=== PATIENT | female | born 1945 | race Caucasian/White ===

== ENCOUNTER 2021-09-16 15:32 | Inpatient (IN) | payer MEDICARE, OTHER ==
[~2021-09-16] VITALS: Ht 157.5 cm; Wt 49.9 kg
[2021-09-16 16:00] VITALS: BP 108/72
[2021-09-16] MEDS ORDERED: PHENAZOPYRIDINE HCL 100 MG TABLET PO PRN (17:30)
[2021-09-16] MEDS ORDERED: MAGNESIUM HYDROXIDE SUSPENSION 30 ML UDCUP PO PRN (17:30)
[2021-09-16] MEDS ORDERED: MECLIZINE HCL 12.5 MG TABLET PO PRN (17:30)
[2021-09-16] MEDS: CARBIDOPA/LEVODOPA 25-100 MG ER TABLET PO SCH (20:55)
[2021-09-16] MEDS: SENNA 187 MG TABLET PO SCH (20:56)
[2021-09-16] MEDS: METOPROLOL TARTRATE 25 MG TABLET PO SCH (20:56)
[2021-09-16 20:59] VITALS: BP 126/75
[2021-09-16] MEDS: ETHYL ALCOHOL 62% ANTISEPTIC NASAL SANITIZER 0.6 ML AMPUL NASAL SCH (20:59)
[2021-09-16] MEDS: HYDROCODONE/ACETAMINOPHEN 5-325 MG TABLET PO PRN (20:59)
[2021-09-16] MEDS ORDERED: DOCUSATE SODIUM 100 MG CAPSULE PO SCH (21:00)
[2021-09-16] MEDS: DOCUSATE SODIUM 250 MG CAPSULE PO SCH (21:09)
[2021-09-17 04:40] VITALS: BP 110/72
[2021-09-17] MEDS: HYDROCODONE/ACETAMINOPHEN 5-325 MG TABLET PO PRN (04:40)
[2021-09-17 07:12] LABS: BASOPHILS % (AUTO) 0.6 % (0.0-2.0); HEMATOCRIT 39.8 % (36-46); HEMOGLOBIN 13.7 g/dL (12.0-16.0); LYMPHOCYTES # (AUTO) 1.3 K/uL (1.0-4.8); LYMPHOCYTES % (AUTO) 11.8 % (22.0-44.0); MEAN CORPUSCULAR HEMOGLOBIN 34.2 pg (26.0-34.0); MEAN CORPUSCULAR HGB CONC 34.5 G/dL (31.0-37.0); MEAN CORPUSCULAR VOLUME 99 fL (80-100); MONOCYTES # (AUTO) 0.7 K/uL (0.1-1.0); NEUTROPHILS # (AUTO) 8.5 K/uL (1.8-7.7); NEUTROPHILS % (AUTO) 78.6 % (40.0-70.0); PLATELET COUNT (AUTO) 306 K/uL (150-450); RED BLOOD CELL COUNT(AUTO) 4.01 MIL/uL (4.00-5.20)
[2021-09-17 07:28] LABS: ALANINE AMINOTRANSFERASE 9 U/L (12-78); ALBUMIN 2.9 g/dL (3.4-5.0); ALKALINE PHOSPHATASE 91 U/L (46-116); ANION GAP 7 mmol/L (8-16); ASPARTATE AMINOTRANSFERASE 26 U/L (15-37); BILIRUBIN,TOTAL 0.6 mg/dL (0.1-1.0); CALCIUM, TOTAL 9.3 mg/dL (8.8-10.5); CARBON DIOXIDE 29 mmol/L (22-29); CHLORIDE 98 mmol/L (98-107); CREATININE 0.54 mg/dL (0.60-1.30); GLUCOSE,RANDOM 107 mg/dL (70-110); POTASSIUM 4.4 mmol/L (3.5-5.1); SODIUM SERUM 134 mmol/L (136-145); UREA NITROGEN, BLOOD 17 mg/dL (7-18)
[2021-09-17 07:30] VITALS: BP 111/66
[2021-09-17 07:33] LABS: GLOMERULAR FILTR. RATE CALC > 60 mL/min (>60)
[2021-09-17] MEDS: ETHYL ALCOHOL 62% ANTISEPTIC NASAL SANITIZER 0.6 ML AMPUL NASAL SCH ×2 (08:12→20:04)
[2021-09-17] MEDS: MULTIVITAMINS WITH MINERALS, THERAPEUTIC TABLET PO SCH (08:14)
[2021-09-17] MEDS: CARBIDOPA/LEVODOPA 25-100 MG ER TABLET PO SCH ×4 (08:15→20:05)
[2021-09-17] MEDS: DOCUSATE SODIUM 250 MG CAPSULE PO SCH ×2 (08:15→20:05)
[2021-09-17] MEDS: METOPROLOL TARTRATE 25 MG TABLET PO SCH ×2 (08:15→20:07)
[2021-09-17] MEDS: RASAGILINE MESYLATE 1 MG TABLET PO SCH (08:16)
[2021-09-17] MEDS: ACETAMINOPHEN 325 MG TABLET PO PRN (12:59)
[2021-09-17 15:20] VITALS: BP 98/54
[2021-09-17 19:55] VITALS: BP 99/48
[2021-09-17] MEDS: SENNA 187 MG TABLET PO SCH (20:05)
[2021-09-18 04:00] VITALS: BP 108/52
[2021-09-18] MEDS: ETHYL ALCOHOL 62% ANTISEPTIC NASAL SANITIZER 0.6 ML AMPUL NASAL SCH ×2 (08:01→20:16)
[2021-09-18] MEDS: MULTIVITAMINS WITH MINERALS, THERAPEUTIC TABLET PO SCH (08:03)
[2021-09-18] MEDS: DOCUSATE SODIUM 250 MG CAPSULE PO SCH ×2 (08:03→20:13)
[2021-09-18] MEDS: METOPROLOL TARTRATE 25 MG TABLET PO SCH ×2 (08:03→20:13)
[2021-09-18] MEDS: RASAGILINE MESYLATE 1 MG TABLET PO SCH (08:04)
[2021-09-18] MEDS: CARBIDOPA/LEVODOPA 25-100 MG ER TABLET PO SCH ×4 (08:04→20:13)
[2021-09-18 08:06] VITALS: BP 116/58
[2021-09-18] MEDS: HYDROCODONE/ACETAMINOPHEN 5-325 MG TABLET PO PRN (08:06)
[2021-09-18] MEDS: ENOXAPARIN SODIUM 30 MG/0.3 ML PF SYRINGE SQ SCH (08:06)
[2021-09-18 15:43] VITALS: BP 109/51
[2021-09-18] MEDS: SENNA 187 MG TABLET PO SCH (20:13)
[2021-09-18 20:17] VITALS: BP 112/47
[2021-09-18 23:00] VITALS: BP 108/54
[2021-09-19 06:37] LABS: GLUCOMETER DEV NAME(LOC) 2WR.2B; GLUCOSE,POINT OF CARE 109 MG/DL (70-110)
[2021-09-19 06:59] LABS: BASOPHILS % (AUTO) 1.2 % (0.0-2.0); EOSINOPHILS % (AUTO) 2.2 % (1.0-6.0); HEMATOCRIT 38.8 % (36-46); LYMPHOCYTES # (AUTO) 2.4 K/uL (1.0-4.8); LYMPHOCYTES % (AUTO) 26.2 % (22.0-44.0); MEAN CORPUSCULAR HEMOGLOBIN 33.3 pg (26.0-34.0); MEAN CORPUSCULAR HGB CONC 33.5 G/dL (31.0-37.0); MEAN CORPUSCULAR VOLUME 100 fL (80-100); MONOCYTES # (AUTO) 0.7 K/uL (0.1-1.0); MONOCYTES % (AUTO) 7.3 % (2.0-9.0); NEUTROPHILS # (AUTO) 5.9 K/uL (1.8-7.7); NEUTROPHILS % (AUTO) 63.1 % (40.0-70.0); PLATELET COUNT (AUTO) 357 K/uL (150-450); RED CELL DISTRIBUTION WIDTH 12.9 % (11.5-14.5)
[2021-09-19 07:20] LABS: PROTHROMBIN TIME 10.6 SEC (9.4-11.6)
[2021-09-19 07:27] LABS: APPEARANCE,URINE HAZY (CLEAR); BILIRUBIN,URINE NEGATIVE (NEGATIVE); GLUCOSE, URINE (UA) NEGATIVE (NEGATIVE); KETONES,URINE NEGATIVE (NEGATIVE); LEUKOCYTE ESTERASE ,URINE LARGE (NEGATIVE); NITRATE,URINE NEGATIVE (NEGATIVE); OCCULT BLOOD,URINE TRACE (NEGATIVE); PH,URINE 5.5 (5.0-8.0); PROTEIN,URINE NEGATIVE (NEGATIVE); SPECIFIC GRAVITIY, URINE 1.015 (1.003-1.030); UROBILINOGEN,URINE <=1.0 mg/dL (<=1.0)
[2021-09-19 07:42] LABS: RBC,URINE 0-2 /HPF (0-2); WBC,URINE 26-50 /HPF (0-5)
[2021-09-19 07:43] LABS: BACTERIA,URINE Moderate /HPF (None Seen)
[2021-09-19 08:15] LABS: ANION GAP 5 mmol/L (8-16); CALCIUM, TOTAL 9.5 mg/dL (8.8-10.5); CARBON DIOXIDE 29 mmol/L (22-29); CHLORIDE 100 mmol/L (98-107); CREATININE 0.57 mg/dL (0.60-1.30); GLUCOSE,RANDOM 110 mg/dL (70-110); POTASSIUM 4.3 mmol/L (3.5-5.1); SODIUM SERUM 134 mmol/L (136-145); UREA NITROGEN, BLOOD 19 mg/dL (7-18)
[2021-09-19 08:17] LABS: GLOMERULAR FILTR. RATE CALC > 60 mL/min (>60)
[2021-09-19 08:21] LABS: ALANINE AMINOTRANSFERASE 15 U/L (12-78); ALBUMIN 3.2 g/dL (3.4-5.0); ALKALINE PHOSPHATASE 133 U/L (46-116); ASPARTATE AMINOTRANSFERASE 29 U/L (15-37); BILIRUBIN,TOTAL 0.4 mg/dL (0.1-1.0); TOTAL PROTEIN, SERUM 7.5 g/dL (6.4-8.2)
[2021-09-19] MEDS: RASAGILINE MESYLATE 1 MG TABLET PO SCH (08:26)
[2021-09-19] MEDS: ETHYL ALCOHOL 62% ANTISEPTIC NASAL SANITIZER 0.6 ML AMPUL NASAL SCH ×2 (08:26→20:50)
[2021-09-19] MEDS: CARBIDOPA/LEVODOPA 25-100 MG ER TABLET PO SCH ×4 (08:26→20:49)
[2021-09-19] MEDS: DOCUSATE SODIUM 250 MG CAPSULE PO SCH ×2 (08:27→20:49)
[2021-09-19] MEDS: MULTIVITAMINS WITH MINERALS, THERAPEUTIC TABLET PO SCH (08:27)
[2021-09-19] MEDS: METOPROLOL TARTRATE 25 MG TABLET PO SCH ×2 (08:27→20:49)
[2021-09-19] MEDS: ENOXAPARIN SODIUM 30 MG/0.3 ML PF SYRINGE SQ SCH (08:27)
[2021-09-19] MEDS: NITROFURANTOIN MONOHYD/M-CRYST 100 MG CAPSULE [MACROBID] PO SCH ×2 (09:42→20:51)
[2021-09-19] MEDS: HYDROCODONE/ACETAMINOPHEN 5-325 MG TABLET PO PRN (09:43)
[2021-09-19 09:50] VITALS: BP 114/62
[2021-09-19 09:58] VITALS: BP 111/72
[2021-09-19 10:01] VITALS: BP 94/51
[2021-09-19 16:02] VITALS: BP 105/46
[2021-09-19 20:31] VITALS: BP 113/51
[2021-09-19] MEDS: SENNA 187 MG TABLET PO SCH (20:49)
[2021-09-20 01:00] VITALS: BP 118/55
[2021-09-20] MEDS: ETHYL ALCOHOL 62% ANTISEPTIC NASAL SANITIZER 0.6 ML AMPUL NASAL SCH ×2 (09:06→20:50)
[2021-09-20] MEDS: CARBIDOPA/LEVODOPA 25-100 MG ER TABLET PO SCH ×4 (09:07→20:50)
[2021-09-20] MEDS: ENOXAPARIN SODIUM 30 MG/0.3 ML PF SYRINGE SQ SCH (09:07)
[2021-09-20] MEDS: NITROFURANTOIN MONOHYD/M-CRYST 100 MG CAPSULE [MACROBID] PO SCH ×2 (09:08→20:50)
[2021-09-20] MEDS: METOPROLOL TARTRATE 25 MG TABLET PO SCH ×2 (09:08→20:50)
[2021-09-20] MEDS: RASAGILINE MESYLATE 1 MG TABLET PO SCH (09:08)
[2021-09-20] MEDS: DOCUSATE SODIUM 250 MG CAPSULE PO SCH ×2 (09:09→20:55)
[2021-09-20] MEDS: HYDROCODONE/ACETAMINOPHEN 5-325 MG TABLET PO PRN (09:09)
[2021-09-20] MEDS: MULTIVITAMINS WITH MINERALS, THERAPEUTIC TABLET PO SCH (09:10)
[2021-09-20 09:15] VITALS: BP 147/77
[2021-09-20 15:20] VITALS: BP 107/57
[2021-09-20] MEDS: SENNA 187 MG TABLET PO SCH (20:55)
[2021-09-21] VITALS: BP 109/50
[2021-09-21 01:03] VITALS: BP 128/66
[2021-09-21 07:35] VITALS: BP 131/76
[2021-09-21] MEDS: ETHYL ALCOHOL 62% ANTISEPTIC NASAL SANITIZER 0.6 ML AMPUL NASAL SCH ×2 (08:09→21:53)
[2021-09-21] MEDS: RASAGILINE MESYLATE 1 MG TABLET PO SCH (08:09)
[2021-09-21] MEDS: MULTIVITAMINS WITH MINERALS, THERAPEUTIC TABLET PO SCH (08:10)
[2021-09-21] MEDS: DOCUSATE SODIUM 250 MG CAPSULE PO SCH ×2 (08:10→21:53)
[2021-09-21] MEDS: ENOXAPARIN SODIUM 30 MG/0.3 ML PF SYRINGE SQ SCH (08:11)
[2021-09-21] MEDS: NITROFURANTOIN MONOHYD/M-CRYST 100 MG CAPSULE [MACROBID] PO SCH ×2 (08:11→21:53)
[2021-09-21] MEDS: METOPROLOL TARTRATE 25 MG TABLET PO SCH ×2 (08:11→21:55)
[2021-09-21] MEDS: CARBIDOPA/LEVODOPA 25-100 MG ER TABLET PO SCH ×4 (08:13→21:54)
[2021-09-21] MEDS: HYDROCODONE/ACETAMINOPHEN 5-325 MG TABLET PO PRN ×2 (08:16→15:19)
[2021-09-21 15:19] VITALS: BP 124/64
[2021-09-21 21:00] VITALS: BP 120/62
[2021-09-21] MEDS: SENNA 187 MG TABLET PO SCH (21:54)
[2021-09-22] VITALS: BP 130/60
[2021-09-22 06:44] LABS: ANION GAP 7 mmol/L (8-16); CALCIUM, TOTAL 8.7 mg/dL (8.8-10.5); CARBON DIOXIDE 29 mmol/L (22-29); CHLORIDE 103 mmol/L (98-107); CREATININE 0.49 mg/dL (0.60-1.30); GLUCOSE,RANDOM 107 mg/dL (70-110); POTASSIUM 3.8 mmol/L (3.5-5.1); SODIUM SERUM 139 mmol/L (136-145); UREA NITROGEN, BLOOD 10 mg/dL (7-18)
[2021-09-22 06:45] LABS: GLOMERULAR FILTR. RATE CALC > 60 mL/min (>60)
[2021-09-22 07:35] VITALS: BP 124/57
[2021-09-22] MEDS: RASAGILINE MESYLATE 1 MG TABLET PO SCH (08:44)
[2021-09-22] MEDS: METOPROLOL TARTRATE 25 MG TABLET PO SCH ×2 (08:44→21:40)
[2021-09-22] MEDS: NITROFURANTOIN MONOHYD/M-CRYST 100 MG CAPSULE [MACROBID] PO SCH (08:44)
[2021-09-22] MEDS: CARBIDOPA/LEVODOPA 25-100 MG ER TABLET PO SCH ×4 (08:44→21:40)
[2021-09-22] MEDS: MULTIVITAMINS WITH MINERALS, THERAPEUTIC TABLET PO SCH (08:44)
[2021-09-22] MEDS: ENOXAPARIN SODIUM 30 MG/0.3 ML PF SYRINGE SQ SCH (08:44)
[2021-09-22] MEDS: DOCUSATE SODIUM 250 MG CAPSULE PO SCH ×2 (08:45→21:40)
[2021-09-22] MEDS: ETHYL ALCOHOL 62% ANTISEPTIC NASAL SANITIZER 0.6 ML AMPUL NASAL SCH ×2 (08:49→21:40)
[2021-09-22] MEDS: BusPIRone HCL 5 MG TABLET PO SCH ×2 (14:10→21:40)
[2021-09-22 15:00] VITALS: BP 95/49
[2021-09-22] MEDS: SENNA 187 MG TABLET PO SCH (21:40)
[2021-09-23 01:30] VITALS: BP 112/45
[2021-09-23 07:00] VITALS: BP 112/70
[2021-09-23] MEDS: METOPROLOL TARTRATE 25 MG TABLET PO SCH ×2 (09:43→20:37)
[2021-09-23] MEDS: ETHYL ALCOHOL 62% ANTISEPTIC NASAL SANITIZER 0.6 ML AMPUL NASAL SCH ×2 (09:43→20:37)
[2021-09-23] MEDS: MULTIVITAMINS WITH MINERALS, THERAPEUTIC TABLET PO SCH (09:43)
[2021-09-23] MEDS: DOCUSATE SODIUM 250 MG CAPSULE PO SCH ×2 (09:43→20:35)
[2021-09-23] MEDS: RASAGILINE MESYLATE 1 MG TABLET PO SCH (09:43)
[2021-09-23] MEDS: BusPIRone HCL 5 MG TABLET PO SCH ×2 (09:43→20:36)
[2021-09-23] MEDS: ENOXAPARIN SODIUM 30 MG/0.3 ML PF SYRINGE SQ SCH (09:44)
[2021-09-23] MEDS: CARBIDOPA/LEVODOPA 25-100 MG ER TABLET PO SCH ×4 (09:44→20:35)
[2021-09-23 16:58] VITALS: BP 102/70
[2021-09-23] MEDS: SENNA 187 MG TABLET PO SCH (20:37)
[2021-09-23 20:40] VITALS: BP 109/62
[2021-09-24 02:00] VITALS: BP 114/51
[2021-09-24] MEDS: ETHYL ALCOHOL 62% ANTISEPTIC NASAL SANITIZER 0.6 ML AMPUL NASAL SCH ×2 (08:16→20:31)
[2021-09-24] MEDS: ENOXAPARIN SODIUM 30 MG/0.3 ML PF SYRINGE SQ SCH (08:17)
[2021-09-24] MEDS: METOPROLOL TARTRATE 25 MG TABLET PO SCH ×2 (08:17→20:32)
[2021-09-24] MEDS: CARBIDOPA/LEVODOPA 25-100 MG ER TABLET PO SCH ×4 (08:17→20:31)
[2021-09-24] MEDS: MULTIVITAMINS WITH MINERALS, THERAPEUTIC TABLET PO SCH (08:17)
[2021-09-24] MEDS: RASAGILINE MESYLATE 1 MG TABLET PO SCH (08:18)
[2021-09-24] MEDS: DOCUSATE SODIUM 250 MG CAPSULE PO SCH ×2 (08:18→20:31)
[2021-09-24] MEDS: BusPIRone HCL 5 MG TABLET PO SCH ×2 (08:18→20:32)
[2021-09-24] MEDS: ACETAMINOPHEN 325 MG TABLET PO PRN (09:17)
[2021-09-24 09:25] VITALS: BP 119/59
[2021-09-24 16:10] VITALS: BP 97/48
[2021-09-24 20:27] VITALS: BP 123/49
[2021-09-24] MEDS: SENNA 187 MG TABLET PO SCH (20:33)
[2021-09-24 23:57] VITALS: BP 116/53
[2021-09-25 07:30] VITALS: BP 130/74
[2021-09-25] MEDS: ENOXAPARIN SODIUM 30 MG/0.3 ML PF SYRINGE SQ SCH (08:02)
[2021-09-25] MEDS: ETHYL ALCOHOL 62% ANTISEPTIC NASAL SANITIZER 0.6 ML AMPUL NASAL SCH ×2 (08:02→21:34)
[2021-09-25] MEDS: DOCUSATE SODIUM 250 MG CAPSULE PO SCH ×2 (08:03→21:00)
[2021-09-25] MEDS: MULTIVITAMINS WITH MINERALS, THERAPEUTIC TABLET PO SCH (08:03)
[2021-09-25] MEDS: METOPROLOL TARTRATE 25 MG TABLET PO SCH ×2 (08:03→21:00)
[2021-09-25] MEDS: RASAGILINE MESYLATE 1 MG TABLET PO SCH (08:04)
[2021-09-25] MEDS: BusPIRone HCL 5 MG TABLET PO SCH ×2 (08:04→20:38)
[2021-09-25] MEDS: CARBIDOPA/LEVODOPA 25-100 MG ER TABLET PO SCH ×4 (08:13→20:38)
[2021-09-25 15:28] VITALS: BP 117/50
[2021-09-25 20:36] VITALS: BP 106/56
[2021-09-25] MEDS: SENNA 187 MG TABLET PO SCH (21:00)
[2021-09-25 21:32] VITALS: BP 107/42
[2021-09-26] VITALS: BP 97/53
[2021-09-26] MEDS: CARBIDOPA/LEVODOPA 25-100 MG ER TABLET PO SCH ×4 (08:00→20:36)
[2021-09-26] MEDS: ETHYL ALCOHOL 62% ANTISEPTIC NASAL SANITIZER 0.6 ML AMPUL NASAL SCH ×2 (08:00→20:36)
[2021-09-26] MEDS: MULTIVITAMINS WITH MINERALS, THERAPEUTIC TABLET PO SCH (08:00)
[2021-09-26] MEDS: METOPROLOL TARTRATE 25 MG TABLET PO SCH ×2 (08:00→20:36)
[2021-09-26] MEDS: RASAGILINE MESYLATE 1 MG TABLET PO SCH (08:01)
[2021-09-26] MEDS: DOCUSATE SODIUM 250 MG CAPSULE PO SCH ×2 (08:01→20:37)
[2021-09-26] MEDS: BusPIRone HCL 5 MG TABLET PO SCH ×2 (08:01→20:36)
[2021-09-26] MEDS: ENOXAPARIN SODIUM 30 MG/0.3 ML PF SYRINGE SQ SCH (08:03)
[2021-09-26 08:05] VITALS: BP 127/65
[2021-09-26] MEDS: HYDROCODONE/ACETAMINOPHEN 5-325 MG TABLET PO PRN (11:03)
[2021-09-26 15:28] VITALS: BP 98/62
[2021-09-26 20:33] VITALS: BP 128/64
[2021-09-26] MEDS: SENNA 187 MG TABLET PO SCH (20:37)
[2021-09-27 04:00] VITALS: BP 112/63
[2021-09-27 08:16] VITALS: BP 134/64
[2021-09-27] MEDS: ETHYL ALCOHOL 62% ANTISEPTIC NASAL SANITIZER 0.6 ML AMPUL NASAL SCH ×2 (09:34→20:23)
[2021-09-27] MEDS: METOPROLOL TARTRATE 25 MG TABLET PO SCH ×2 (09:34→20:23)
[2021-09-27] MEDS: RASAGILINE MESYLATE 1 MG TABLET PO SCH (09:34)
[2021-09-27] MEDS: CARBIDOPA/LEVODOPA 25-100 MG ER TABLET PO SCH ×4 (09:34→20:23)
[2021-09-27] MEDS: MULTIVITAMINS WITH MINERALS, THERAPEUTIC TABLET PO SCH (09:35)
[2021-09-27] MEDS: ENOXAPARIN SODIUM 30 MG/0.3 ML PF SYRINGE SQ SCH (09:35)
[2021-09-27] MEDS: BusPIRone HCL 5 MG TABLET PO SCH ×2 (09:35→20:23)
[2021-09-27] MEDS: DOCUSATE SODIUM 250 MG CAPSULE PO SCH ×2 (09:35→20:23)
[2021-09-27 15:47] VITALS: BP 139/64
[2021-09-27 16:20] VITALS: BP 113/47
[2021-09-27] MEDS: SENNA 187 MG TABLET PO SCH ×2 (20:24→20:27)
[2021-09-27 20:28] VITALS: BP 107/44
[2021-09-27] MEDS ORDERED: TUBERCULIN, PURIFIED PROTEIN DERIVATIVE 5 TU/0.1 ML SYRINGE ID ONE (20:30)
[2021-09-28 04:30] VITALS: BP 121/53
[2021-09-28 08:00] VITALS: BP 133/71
[2021-09-28] MEDS: DOCUSATE SODIUM 250 MG CAPSULE PO SCH ×2 (09:00→20:27)
[2021-09-28] MEDS: RASAGILINE MESYLATE 1 MG TABLET PO SCH (09:03)
[2021-09-28] MEDS: ETHYL ALCOHOL 62% ANTISEPTIC NASAL SANITIZER 0.6 ML AMPUL NASAL SCH ×2 (09:03→20:26)
[2021-09-28] MEDS: METOPROLOL TARTRATE 25 MG TABLET PO SCH ×2 (09:04→20:26)
[2021-09-28] MEDS: BusPIRone HCL 5 MG TABLET PO SCH ×2 (09:04→20:26)
[2021-09-28] MEDS: MULTIVITAMINS WITH MINERALS, THERAPEUTIC TABLET PO SCH (09:04)
[2021-09-28] MEDS: ENOXAPARIN SODIUM 30 MG/0.3 ML PF SYRINGE SQ SCH (09:04)
[2021-09-28] MEDS: CARBIDOPA/LEVODOPA 25-100 MG ER TABLET PO SCH ×4 (09:04→20:26)
[2021-09-28 16:05] VITALS: BP 102/59
[2021-09-28 18:34] LABS: APPEARANCE,URINE HAZY (CLEAR); BILIRUBIN,URINE NEGATIVE (NEGATIVE); GLUCOSE, URINE (UA) NEGATIVE (NEGATIVE); KETONES,URINE TRACE mg/dL (NEGATIVE); LEUKOCYTE ESTERASE ,URINE LARGE (NEGATIVE); NITRATE,URINE NEGATIVE (NEGATIVE); OCCULT BLOOD,URINE NEGATIVE (NEGATIVE); PH,URINE 5.5 (5.0-8.0); PROTEIN,URINE NEGATIVE (NEGATIVE); SPECIFIC GRAVITIY, URINE 1.009 (1.003-1.030); UROBILINOGEN,URINE <=1.0 mg/dL (<=1.0)
[2021-09-28 18:53] LABS: BACTERIA,URINE None Seen /HPF (None Seen); RBC,URINE None Seen /HPF (0-2); WBC,URINE 26-50 /HPF (0-5)
[2021-09-28 20:19] VITALS: BP 127/64
[2021-09-28] MEDS: NITROFURANTOIN MONOHYD/M-CRYST 100 MG CAPSULE [MACROBID] PO SCH (20:26)
[2021-09-28] MEDS: SENNA 187 MG TABLET PO SCH (20:27)
[2021-09-28 23:44] VITALS: BP 127/51
[2021-09-29 07:44] VITALS: BP 133/70
[2021-09-29] MEDS: ENOXAPARIN SODIUM 30 MG/0.3 ML PF SYRINGE SQ SCH (08:08)
[2021-09-29] MEDS: ETHYL ALCOHOL 62% ANTISEPTIC NASAL SANITIZER 0.6 ML AMPUL NASAL SCH ×2 (08:10→20:29)
[2021-09-29] MEDS: NITROFURANTOIN MONOHYD/M-CRYST 100 MG CAPSULE [MACROBID] PO SCH ×2 (08:11→20:31)
[2021-09-29] MEDS: METOPROLOL TARTRATE 25 MG TABLET PO SCH ×2 (08:11→20:34)
[2021-09-29] MEDS: CARBIDOPA/LEVODOPA 25-100 MG ER TABLET PO SCH ×4 (08:11→20:32)
[2021-09-29] MEDS: RASAGILINE MESYLATE 1 MG TABLET PO SCH (08:11)
[2021-09-29] MEDS: MULTIVITAMINS WITH MINERALS, THERAPEUTIC TABLET PO SCH (08:12)
[2021-09-29] MEDS: BusPIRone HCL 5 MG TABLET PO SCH ×2 (08:12→20:31)
[2021-09-29] MEDS: DOCUSATE SODIUM 250 MG CAPSULE PO SCH ×2 (08:12→20:36)
[2021-09-29] MEDS: ACETAMINOPHEN 325 MG TABLET PO PRN (10:54)
[2021-09-29 17:19] VITALS: BP 100/57
[2021-09-29 20:00] VITALS: BP 103/58
[2021-09-29] MEDS: SENNA 187 MG TABLET PO SCH (20:37)
[2021-09-29 23:38] VITALS: BP 109/50
[2021-09-30] MEDS: ETHYL ALCOHOL 62% ANTISEPTIC NASAL SANITIZER 0.6 ML AMPUL NASAL SCH ×2 (08:33→20:09)
[2021-09-30] MEDS: RASAGILINE MESYLATE 1 MG TABLET PO SCH (08:34)
[2021-09-30] MEDS: NITROFURANTOIN MONOHYD/M-CRYST 100 MG CAPSULE [MACROBID] PO SCH ×2 (08:34→20:09)
[2021-09-30] MEDS: ENOXAPARIN SODIUM 30 MG/0.3 ML PF SYRINGE SQ SCH (08:34)
[2021-09-30] MEDS: BusPIRone HCL 5 MG TABLET PO SCH ×2 (08:34→20:09)
[2021-09-30] MEDS: CARBIDOPA/LEVODOPA 25-100 MG ER TABLET PO SCH ×4 (08:34→20:09)
[2021-09-30] MEDS: MULTIVITAMINS WITH MINERALS, THERAPEUTIC TABLET PO SCH (08:35)
[2021-09-30] MEDS: DOCUSATE SODIUM 250 MG CAPSULE PO SCH ×2 (08:35→20:10)
[2021-09-30] MEDS: METOPROLOL TARTRATE 25 MG TABLET PO SCH ×2 (08:35→20:09)
[2021-09-30 10:39] VITALS: BP 122/59
[2021-09-30 16:51] VITALS: BP 109/50
[2021-09-30 19:51] VITALS: BP 107/54
[2021-09-30] MEDS: SENNA 187 MG TABLET PO SCH (20:10)
[2021-10-01] MEDS ORDERED: MULT-1239 PO (01:00)
[2021-10-01] MEDS ORDERED: CARB-98 PO (01:00)
[2021-10-01] MEDS ORDERED: RASA0.5T PO (01:00)
[2021-10-01] MEDS ORDERED: DOCU-350 PO (01:00)
[2021-10-01] MEDS ORDERED: METO25 PO (01:00)
[2021-10-01] MEDS ORDERED: BUSP5TAB20 PO (01:00)
[2021-10-01] MEDS ORDERED: NITR100C4 PO (01:00)
[2021-10-01 04:36] VITALS: BP 113/75
[2021-10-01 07:30] VITALS: BP 102/73
[2021-10-01] MEDS: DOCUSATE SODIUM 250 MG CAPSULE PO SCH ×2 (09:00→21:00)
[2021-10-01 09:35] VITALS: BP 129/44
[2021-10-01] MEDS: ETHYL ALCOHOL 62% ANTISEPTIC NASAL SANITIZER 0.6 ML AMPUL NASAL SCH ×2 (09:58→21:28)
[2021-10-01] MEDS: RASAGILINE MESYLATE 1 MG TABLET PO SCH (09:59)
[2021-10-01] MEDS: METOPROLOL TARTRATE 25 MG TABLET PO SCH ×2 (09:59→21:28)
[2021-10-01] MEDS: ENOXAPARIN SODIUM 30 MG/0.3 ML PF SYRINGE SQ SCH (09:59)
[2021-10-01] MEDS: MULTIVITAMINS WITH MINERALS, THERAPEUTIC TABLET PO SCH (09:59)
[2021-10-01] MEDS: CARBIDOPA/LEVODOPA 25-100 MG ER TABLET PO SCH ×4 (10:00→21:28)
[2021-10-01] MEDS: NITROFURANTOIN MONOHYD/M-CRYST 100 MG CAPSULE [MACROBID] PO SCH ×2 (10:00→21:30)
[2021-10-01] MEDS: ACETAMINOPHEN 325 MG TABLET PO PRN (10:04)
[2021-10-01] MEDS: BusPIRone HCL 5 MG TABLET PO SCH ×2 (10:04→21:30)
[2021-10-01 12:43] VITALS: BP 137/82
[2021-10-01 16:30] VITALS: BP 124/64
[2021-10-01 21:00] VITALS: BP 128/66
[2021-10-01] MEDS: SENNA 187 MG TABLET PO SCH (21:00)
[2021-10-02] VITALS: BP 110/58
[2021-10-02] MEDS: ENOXAPARIN SODIUM 30 MG/0.3 ML PF SYRINGE SQ SCH (07:58)
[2021-10-02] MEDS: METOPROLOL TARTRATE 25 MG TABLET PO SCH ×2 (07:59→21:00)
[2021-10-02] MEDS: RASAGILINE MESYLATE 1 MG TABLET PO SCH (07:59)
[2021-10-02] MEDS: MULTIVITAMINS WITH MINERALS, THERAPEUTIC TABLET PO SCH (07:59)
[2021-10-02] MEDS: BusPIRone HCL 5 MG TABLET PO SCH ×2 (07:59→21:39)
[2021-10-02] MEDS: CARBIDOPA/LEVODOPA 25-100 MG ER TABLET PO SCH ×4 (07:59→21:39)
[2021-10-02] MEDS: ETHYL ALCOHOL 62% ANTISEPTIC NASAL SANITIZER 0.6 ML AMPUL NASAL SCH ×2 (08:00→21:38)
[2021-10-02] MEDS: DOCUSATE SODIUM 250 MG CAPSULE PO SCH ×2 (08:02→21:39)
[2021-10-02] MEDS: NITROFURANTOIN MONOHYD/M-CRYST 100 MG CAPSULE [MACROBID] PO SCH ×2 (08:02→21:38)
[2021-10-02 08:05] VITALS: BP 128/45
[2021-10-02 15:30] VITALS: BP 120/61
[2021-10-02 21:00] VITALS: BP 109/51
[2021-10-02] MEDS: SENNA 187 MG TABLET PO SCH (21:38)
[2021-10-02 23:00] VITALS: BP 111/54
[2021-10-03] MEDS: ETHYL ALCOHOL 62% ANTISEPTIC NASAL SANITIZER 0.6 ML AMPUL NASAL SCH (09:20)
[2021-10-03] MEDS: CARBIDOPA/LEVODOPA 25-100 MG ER TABLET PO SCH (09:21)
[2021-10-03] MEDS: ENOXAPARIN SODIUM 30 MG/0.3 ML PF SYRINGE SQ SCH (09:21)
[2021-10-03] MEDS: MULTIVITAMINS WITH MINERALS, THERAPEUTIC TABLET PO SCH (09:21)
[2021-10-03] MEDS: NITROFURANTOIN MONOHYD/M-CRYST 100 MG CAPSULE [MACROBID] PO SCH (09:21)
[2021-10-03] MEDS: DOCUSATE SODIUM 250 MG CAPSULE PO SCH (09:21)
[2021-10-03] MEDS: METOPROLOL TARTRATE 25 MG TABLET PO SCH (09:22)
[2021-10-03] MEDS: BusPIRone HCL 5 MG TABLET PO SCH (09:23)
[2021-10-03] MEDS: RASAGILINE MESYLATE 1 MG TABLET PO SCH (09:25)
[2021-10-03 09:44] VITALS: BP 125/56
[2021-10-03] MEDS ORDERED: CARB-114 PO (09:47)
[2021-10-03] MEDS ORDERED: MULT-1239 PO (09:47)
[2021-10-03] MEDS ORDERED: DOCU-350 PO (09:47)
[2021-10-03] MEDS ORDERED: METO25 PO (09:47)
[2021-10-03] MEDS ORDERED: RASA1TAB PO (09:47)
[2021-10-03] MEDS ORDERED: BUSP5TAB20 PO (09:47)
[2021-10-03] MEDS ORDERED: SENN-187 PO (09:47)
[2021-10-03] MEDS ORDERED: NITR-75 PO (09:47)
[2021-10-03] MEDS ORDERED: ACET325T51 PO (09:47)
[2021-10-03] MEDS ORDERED: CARB-225 PO (10:38)
== END 2021-10-03 13:00 | disposition home health service (06) | DRG 536 ==
LOC: 2WR 15:50
PROVIDERS: ADMIT Physical Medicine & Rehabilitation; ATTEND Physical Medicine & Rehabilitation
DX: S32.591A Other specified fracture of right pubis, initial encounter for closed fracture (principal); E87.1 Hypo-osmolality and hyponatremia; N39.0 Urinary tract infection, site not specified; F33.1 Major depressive disorder, recurrent, moderate; D64.9 Anemia, unspecified; G20 Parkinson's disease; G47.33 Obstructive sleep apnea (adult) (pediatric); I10 Essential (primary) hypertension; R13.10 Dysphagia, unspecified; R32 Unspecified urinary incontinence; K59.00 Constipation, unspecified; W18.39XA Other fall on same level, initial encounter; Y93.89 Activity, other specified; Y92.89 Other specified places as the place of occurrence of the external cause; Y99.8 Other external cause status; Z87.440 Personal history of urinary (tract) infections; Z91.19 Patient's noncompliance with other medical treatment and regimen; Z91.040 Latex allergy status
CPT/HCPCS: 70450; 71045; 80048; 80053; 81001; 82962; 84484; 85025; 85610; 85730; 87081; 87086; 92507; 92523; 92526; 93005; 93970; 97110; 97112; 97116; 97163; 97167; 97530; 97535; 99366; J1650; 36415-L1; 36415-TC